=== PATIENT | female | born 1965 | race Caucasian/White ===

== ENCOUNTER → 2016-07-31 | Outpatient (CLI) | payer OTHER ==
[~2016-07-31] MED LIST: ATOR80TA PO; CETI10TA84 PO; Calcium PO; EFF50 PO; FLNIN NAE; GEMF600T3 PO; LETR2TAB PO; LEVO88TA3 PO; Levothyroxine Sodium PO; OMEG10007 PO; [UNRECOGNIZED DRUG - OTHER] PO
== END | disposition home or self-care (01) ==
LOC: C.MAMM 08:28
PROVIDERS: ATTEND Internal Medicine Hematology & Oncology
DX: C50.919 Malignant neoplasm of unspecified site of unspecified female breast (principal)

== ENCOUNTER → 2016-11-13 | Outpatient (CLI) | payer OTHER ==
[2016-11-13 15:49] LABS: AST/SGOT 29 U/L (15-37); BLOOD UREA NITROGEN 12 mg/dl (7-18); BUN/CREATININE RATIO 13.2 (10-20); CALCIUM 8.7 mg/dl (8.5-10.1); CARBON DIOXIDE 27 mmol/L (21-32); CHLORIDE 108 mmol/L (98-107); CREATININE 0.94 mg/dl (0.60-1.20); GLUCOSE 98 mg/dl (70-99); POTASSIUM 4.2 mmol/L (3.5-5.1); SODIUM 142 mmol/L (136-145)
[2016-11-13 16:01] LABS: ALB/GLOB RATIO 1.6 (0.9-2); ALKALINE PHOSPHATASE 77 U/L (45-117); ALT/SGPT 61 U/L (12-78); CHOLESTEROL 149 mg/dl (0-200); CHOLESTEROL/HDL RATIO 4.5; HDL CHOLESTEROL 33 mg/dl; LDL CHOLESTEROL CALCULATED 36 mg/dl; TRIGLYCERIDES 398 mg/dl (0-150); VERY LOW DENSITY LIPOPROT CALC 80 mg/dl
== END | disposition home or self-care (01) ==
LOC: C.LABBC 11:54
PROVIDERS: ATTEND Family Medicine
DX: E03.9 Hypothyroidism, unspecified (principal); F41.8 Other specified anxiety disorders; E78.5 Hyperlipidemia, unspecified

== ENCOUNTER → 2016-11-21 | Outpatient (CLI) | payer OTHER ==
[2014-11-16 14:13] VITALS: BP 129/85; PULSE 68
[2016-11-21 13:41] VITALS: BP 126/83; PULSE 65; TEMP 36.8; O2SAT 95
--- NOTE | 2016-11-21 17:00 | Radiation Oncology Follow-Up ---
Radiation Oncology Follow-Up Date of Visit Nov 21, 2016. 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 Status post partial mastectomy and bilateral breast reduction with clear margins and no adjuvant therapy Abnormal right breast mammogram biopsy positive for invasive ductal carcinoma Status post bilateral simple mastectomies with placement of tissue expanders and sentinel lymph node biopsy, right breast stage [id number] Stage IIIa Status post systemic chemotherapy with 4 cycles of Taxotere and Cytoxan Status post completion of radiation therapy 10/21/2011 received 5040 cGy Status post placement of permanent implants December 2012 Antiestrogen therapy with letrozole Last Edited By: Henny Fuentes on Oct 16:25 Interim History She's been doing well over this past year. She denies any changes to the chest wall tissue expanders. His been no change of the axilla no swelling of her arm. She continues to have a mild tightness in the right lateral chest wall. She exercises regularly and does stretching exercises which helps to relieve the feeling of tightness. She continues on Femara. She denies side effects. She'll be following up with medical oncology in one month. He'll be discussing with them the length of time she'll need to continue the medication. Allergies Coded Allergies: Cefuroxime (Verified Allergy, Unknown, Unknown, 09/16/15) Morphine (Unverified Adverse Reaction, Mild, nausea and vomiting, 11/17/13) Codeine (Verified Adverse Reaction, Unknown, nausea, 09/27/11) Home Medications Scheduled Atorvastatin Calcium (Lipitor), 1 TAB PO DAILY Fish Oil ([place]-3), 2 CAP PO DAILY Fluticasone Propionate (Flonase Nasal [place] *), 1 SPRAYS ZAKI HS Letrozole (Femara), 2.5 MG PO DAILY Levothyroxine Sodium (Levothyroxine Sodium), 1 TAB PO DAILY Venlafaxine Hcl (Effexor *), 75 MG PO QPM [Calcium ], 1,200 MG PO DAILY [Maddy Fusion Gummie], 2 PO DAILY Review of Systems Gastrointestinal: Symptoms: WNL Oral: Symptoms: No Problems Respiratory: Symptoms: WNL Urinary: Symptoms: WNL Skin: Symptoms: No Problems Other Skin Symptoms: "Gets itchy at times" Breast: Right Upper Arm Measurement: 26.8 Right Mid Arm Measurement: 23.8 Right Wrist Measurement: 16.0 Left Upper Arm Measurement: 27.4 Left Mid Arm Measurement: 22.8 Left Wrist Measurement: 15.5 Arm Dominence: Right Patient Cosmetic Evaluation: Good Physical Exam Vital Signs Date Time Temp Pulse Resp B/P Pulse Ox O2 Delivery O2 Flow Rate FiO2 11/21/16 13:41 36.8 65 16 126/83 95 Pain: Pain Location: None Patient Pain Scale: 0 - 10 Initial Pain Intensity: 0.0 Fatigue: None General Appearance: no apparent distress Eyes: normal inspection, EOMI ENT: normal ENT inspection, hearing grossly normal Neck: no adenopathy, thyroid normal Respiratory/Chest: lungs clear, no respiratory distress, no accessory muscle use Breast: Breast examination reveals bilateral tissue expanders. There are no masses or tenderness and no axillary adenopathy. 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 There is good symmetry of the expanders. There are no retractions. Using the Ozan score cosmesis she has a a fair outcome due to the telangiectasia. Cardiovascular: regular rate, rhythm, no gallop, no murmur Extremities: no pedal edema Neurologic/Psychiatric: no motor/sensory deficits, alert, normal mood/affect Skin: warm/dry Laboratory Studies Test 11/13/16 11:56 Sodium Level 142 mmol/L (136-145) Potassium Level 4.2 mmol/L (3.5-5.1) Chloride Level 108 mmol/L (98-107) Carbon Dioxide Level 27 mmol/L (21-32) Anion Gap 7.0 mmol/L (3-11) Blood Urea Nitrogen 12 mg/dl (7-18) Creatinine 0.94 mg/dl (0.60-1.20) Estimated GFR () 80.3 Estimated GFR (Non- 69.3 BUN/Creatinine Ratio 13.2 (10-20) Random Glucose 98 mg/dl (70-99) Calcium Level 8.7 mg/dl (8.5-10.1) Total Bilirubin 0.7 mg/dl (0.2-1) Aspartate Amino Transferase (AST) 29 U/L (15-37) Alanine Aminotransferase (ALT) 61 U/L (12-78) Alkaline Phosphatase 77 U/L (45-117) Total Protein 6.8 gm/dl (6.4-8.2) Albumin 4.2 gm/dl (3.4-5.0) Globulin 2.6 gm/dl (2.5-4.0) Albumin/Globulin Ratio 1.6 (0.9-2) Triglycerides Level 398 mg/dl (0-150) Cholesterol Level 149 mg/dl (0-200) HDL Cholesterol 33 mg/dl LDL Cholesterol, Calculated 36 mg/dl VLDL Cholesterol, Calculated 80 mg/dl Cholesterol/HDL Ratio 4.5 Thyroid Stimulating Hormone (TSH) 1.570 uIu/ml (0.300-4.500) Assessment & Plan Plan: Continue regular follow-up with medical oncology and her primary care physician. She continues on the Femara. She'll continue with the stretching exercises for the tightness of the chest wall. We have previously discussed the telangiectasia which is not a concern to her. A follow-up appointment with our office was not given. She may call if she has any questions or concerns we' ll be happy to see her. Total Time In Follow-Up I spent 20 minutes speaking to the patient a performing examination. I spent 15 minutes reviewing information and completing this note. Copy To Lalito Hackett D.O.; Marixa Page,
== END | disposition home or self-care (01) ==
LOC: C.ONC 13:30
PROVIDERS: ATTEND Physician Assistant Medical
DX: Z08 Encounter for follow-up examination after completed treatment for malignant neoplasm (principal); Z92.3 Personal history of irradiation; Z85.3 Personal history of malignant neoplasm of breast

== ENCOUNTER → 2017-06-11 | Outpatient (CLI) | payer OTHER ==
[~2017-06-11] MED LIST changes: -CETI10TA84 PO; -GEMF600T3 PO; -Levothyroxine Sodium PO
== END | disposition home or self-care (01) ==
LOC: C.PAPS 10:32
PROVIDERS: ATTEND Obstetrics & Gynecology
DX: Z12.4 Encounter for screening for malignant neoplasm of cervix (principal)

== ENCOUNTER → 2017-07-23 | Outpatient (CLI) | payer OTHER ==
[~2017-07-23] MED LIST changes: +GADAVIST IV PRN
--- NOTE | 2017-07-23 11:15 | DIAGNOSTIC IMAGING REPORT ---
MRI OF THE BRAIN COMBO INTERNAL AUDITORY CANAL PROTOCOL CLINICAL HISTORY: Right-sided hearing loss. COMPARISON STUDY: No priors. TECHNIQUE: MRI of the brain was performed utilizing various T1 and T2-weighted sequences in the axial, sagittal, and coronal planes. Contrast-enhanced sequences were acquired following the administration of 7.5 cc of Gadavist. Additional high-resolution imaging was performed through the skull base both pre and post contrast to further assess the internal artery canals. FINDINGS: Brain parenchyma: The brain parenchyma is normal in appearance. There is no hemorrhage or mass effect. There is no restricted diffusion to suggest acute ischemia. No enhancing mass lesion is identified on the postcontrast images. Lamb-white matter differentiation is preserved. No extra-axial fluid collection is seen. The cerebellar tonsils are normal in configuration. Ventricles, sulci, and cisterns: Normal in configuration. Internal auditory canals: There is no enhancing mass lesion identified in the cerebellopontine angle bilaterally. No mass lesion or abnormal enhancement is seen along the course of the internal auditory canal. Fluid is also noted in the right middle ear. Pituitary and sella: Partially empty sella is incidentally noted. Intracranial vasculature: Normal flow voids are maintained at the skull base. Orbits: The bony orbits are grossly intact. Orbital contents are normal in appearance. Sinuses and mastoids: There is a large right mastoid effusion. The left mastoid air cells are clear. There is evidence of previous paranasal sinus surgery. There is moderate mucosal thickening in the left maxillary antrum. Trace mucosal thickening seen within the ethmoid resection cavity. The remaining cranial sinuses are clear. Calvarium: Unremarkable. Cervical cord: Partially visualized cervical spinal cord is normal in morphology and signal intensity. IMPRESSION: 1. No acute intracranial abnormality. 2. Large right mastoid effusion. 3. Fluid is seen within the right middle ear. Electronically signed by: Wan Swartz M.D. 07/23/2017 11:14 AM Dictated Date/Time: 07/23/2017 11:03 AM
== END | disposition home or self-care (01) ==
LOC: C.MRI 07:32
PROVIDERS: ATTEND Physician Assistant
DX: H91.8X1 Other specified hearing loss, right ear (principal); H74.8X1 Other specified disorders of right middle ear and mastoid

== ENCOUNTER → 2017-12-02 | Outpatient (CLI) | payer BC ==
[~2017-12-02] MED LIST changes: -GADAVIST IV PRN
== END | disposition home or self-care (01) ==
LOC: C.LABBC 09:24
PROVIDERS: ATTEND Family Medicine
DX: E78.5 Hyperlipidemia, unspecified (principal)